=== PATIENT | male | born 1990 | race Caucasian/White ===

== ENCOUNTER 2020-05-10 13:48 | Emergency (ER) | payer BC, OTHER ==
--- NOTE | 2020-05-10 14:54 | EDM.PDOC ---
ED HPI GENERAL MEDICAL PROBLEM - General Chief Complaint: Chest Pain Stated Complaint: SOB,CHEST PAIN Time Seen by Provider: 05/10/20 14:19 - History of Present Illness INITIAL COMMENTS - FREE TEXT/NARRATIVE: History of present illness: Patient presents to the ED because he tested positive at another facility for COVID and is having some fevers and cough. He denies any respiratory distress he says he is worried about feeling badly and so he came to the hospital. Review of systems: As per history of present illness and below otherwise all systems reviewed and negative. Past medical history: As per history of present illness and as reviewed below otherwise noncontributory. Surgical history: As per history of present illness and as reviewed below otherwise noncontributory. Social history: No reported history of drug or alcohol abuse. Family history: As per history of present illness and as reviewed below otherwise noncontributory. Physical exam: HEENT: Atraumatic, normocephalic, pupils reactive, negative for conjunctival pallor or scleral icterus, mucous membranes moist, throat clear, neck supple, nontender, trachea midline. Lungs: Respiratory distress Heart: S1S2, regular, negative for clicks, rubs, or JVD. Abdomen: Soft, nondistended, nontender. Negative for masses or hepatosplenomegaly. Negative for costovertebral tenderness. Pelvis: Genitourinary: Deferred. Rectal: Deferred. Extremities: Atraumatic, negative for cords or calf pain. Neurovascular unremarkable. Neuro: Awake, alert, oriented. Cranial nerves II through XII unremarkable. Cerebellum unremarkable. Motor and sensory unremarkable throughout. Exam nonfocal. Vital signs: All within normal limits Diagnostics: [] Therapeutics: [] Impression: Viral respiratory infection [] Plan: [] Definitive disposition and diagnosis as appropriate pending reevaluation and review of above. Joints Pain Score (Numeric/FACES): 6 - Related Data Allergies Allergy/AdvReac Type Severity Reaction Status Date / Time No Known Allergies Allergy Verified 05/10/20 14:25 Home Meds: Home Meds . [No Known Home Meds] 05/10/20 [History] Past Medical History - Past Health History Medical/Surgical History: Denies Medical/Surgical History - Infectious Disease History Infectious Disease History: Reports: None Social & Family History - Family History Family Medical History: Noncontributory - Tobacco Use Smoking Status *Q: Never Smoker - Caffeine Use Caffeine Use: Reports: Coffee - Recreational Drug Use Recreational Drug Use: No ED ROS GENERAL - Review of Systems Review Of Systems: See Below ED EXAM, GENERAL - Physical Exam Exam: See Below Course - Vital Signs Text/Narrative:: Patient has normal vital signs was instructed to remain home and isolate not to come to the hospital or out in public unless they were having severe respiratory distress. Patient became verbally abusive and used foul and insulting language. Patient then stormed out into the waiting room and left prior to completion of service. Last Recorded V/S: Last Vital Signs Temp 37.2 C 05/10/20 14:18 Pulse 95 05/10/20 14:18 Resp 16 05/10/20 14:18 BP 142/83 H 05/10/20 14:18 Pulse Ox 97 05/10/20 14:18 Departure - Departure Time of Disposition: 14:54 Disposition: Eloped 07 Condition: Undetermined Clinical Impression: COVID-19 - Discharge Information *PRESCRIPTION DRUG MONITORING PROGRAM REVIEWED*: Not Applicable *COPY OF PRESCRIPTION DRUG MONITORING REPORT IN PATIENT [facility]: Not Applicable Referrals: PCP,None [Primary Care Provider] - Sepsis Event Note (ED) - Evaluation Sepsis Screening Result: No Definite Risk - Focused Exam Vital Signs: Vital Signs Temp Pulse Resp BP Pulse Ox 05/10/20 14:18 37.2 C 95 16 142/83 H 97
== END 2020-05-10 14:55 | disposition left against medical advice (07) ==
LOC: MW.ED 13:48
DX: U07.1 COVID-19 (principal)
CPT/HCPCS: 99282; 99283